=== PATIENT | male | born 2005 | race Caucasian/White ===

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

== ENCOUNTER 2025-08-10 23:07 | Emergency (ER) | payer MEDICAID ==
[~2025-08-10] VITALS: Ht 175.3 cm; Wt 54.5 kg
[2025-08-10 23:21] VITALS: TEMP 99.3
[2025-08-11 00:56] VITALS: BP 123/70; PULSE 78; RESP 18; O2SAT 99
[2025-08-11] MEDS ORDERED: AMOX250C4 PO (01:17)
[2025-08-11] MEDS: AMOXICILLIN TRIHYDRATE 250 MG CAPSULE PO ONE (01:21)
== END 2025-08-11 01:46 | disposition home or self-care (01) ==
LOC: EMS 23:16
DX: J02.0 Streptococcal pharyngitis (principal); R51.9 Headache, unspecified; Z91.013 Allergy to seafood
CPT/HCPCS: 87430; 99283